=== PATIENT | female | born 1965 | race Caucasian/White ===

== ENCOUNTER 2024-01-08 01:27 | Emergency (ER) | payer BC | END 2024-01-08 02:03 | disposition home or self-care (01) | LOC: MADERS 01:27 | DX: T78.40XA Allergy, unspecified, initial encounter (principal); R22.33 Localized swelling, mass and lump, upper limb, bilateral; R07.89 Other chest pain; Z87.891 Personal history of nicotine dependence | CPT/HCPCS: 99282 ==